=== PATIENT | female | born 1990 | race African-American/Black ===

== ENCOUNTER 2019-03-26 20:10 | Emergency (ER) | payer MEDICAID ==
[~2019-03-26] VITALS: Ht 162.6 cm; Wt 109.0 kg
[2019-03-26] MEDS ORDERED: METHYLPREDNISOLONE SOD SUCC 125 MG/2 ML VIAL IV STA (23:04)
[2019-03-26] MEDS ORDERED: SODIUM CHLORIDE 0.9% 1,000 ML IV ONE (23:04)
[2019-03-26] MEDS ORDERED: IPRATROPIUM BROMIDE (0.02%) 0.5MG/2.5ML NEB HHN STA (23:04)
[2019-03-26] MEDS: ALBUTEROL (0.083%) 2.5MG/3ML NEB HHN SCH (23:15)
[2019-03-26] MEDS ORDERED: HYDROCODONE/ACETAMINOPHEN 5/325MG TABLET PO ONE (23:15)
[2019-03-26 23:27] LABS: BASOPHILS % 0.5 % (0.0-2.0); EOSINOPHILS % 2.9 % (0.0-5.0); HEMATOCRIT. 38.6 % (36.0-48.0); HEMOGLOBIN. 12.2 g/dL (12.0-16.0); LYMPHOCYTES % 13.7 % (20.0-50.0); MEAN CORPUSCULAR HEMOGLOBIN 23.1 pg (28.0-32.0); MEAN CORPUSCULAR VOLUME 73.2 fL (81.0-99.0); MEAN PLATELET VOLUME 8.7 fl (7.4-10.4); MONOCYTES % 6.1 % (2.0-8.0); NEUTROPHILS % 76.8 % (40.0-76.0); PLATELET 329 x1000/uL (130-400); RED BLOOD CELL COUNT 5.27 mill/uL (4.2-5.4); RED CELL DISTRIBUTION WIDTH 16.1 % (11.6-14.6)
[2019-03-26 23:32] LABS: CHLORIDE 109 mEq/L (98-107)
[2019-03-27] MEDS: ALBUTEROL (0.083%) 2.5MG/3ML NEB HHN SCH ×2 (00:05→01:00)
[2019-03-27 03:08] VITALS: BP 133/78
== END 2019-03-27 03:10 | disposition home or self-care (01) ==
LOC: ER 20:10
DX: J45.901 Unspecified asthma with (acute) exacerbation (principal); F12.10 Cannabis abuse, uncomplicated; I10 Essential (primary) hypertension; Z90.89 Acquired absence of other organs; Z98.890 Other specified postprocedural states; Z87.890 Personal history of sex reassignment
CPT/HCPCS: 36415; 71045; 80053; 81025; 84484; 85025; 93005; 94640; 96374; 99285; J2930; J7030; J7611

== ENCOUNTER 2022-04-19 18:49 | Emergency (ER) | payer MEDICAID ==
[~2022-04-19] VITALS: Ht 167.6 cm; Wt 104.0 kg
[2022-04-19 20:00] VITALS: BP 132/80
[2022-04-19] MEDS ORDERED: HYDROCODONE/ACETAMINOPHEN 5/325MG TABLET PO ONE (20:00)
[2022-04-19] MEDS ORDERED: HYDR-4001 MT (20:24)
[2022-04-19] MEDS ORDERED: AMOX-494 MT (20:24)
[2022-04-19] MEDS ORDERED: ACET-2708 MT (20:24)
== END 2022-04-20 02:14 | disposition home or self-care (01) ==
LOC: ER 18:49
DX: K08.89 Other specified disorders of teeth and supporting structures (principal); J45.909 Unspecified asthma, uncomplicated; I10 Essential (primary) hypertension; Z90.49 Acquired absence of other specified parts of digestive tract; Z98.890 Other specified postprocedural states; F12.10 Cannabis abuse, uncomplicated
CPT/HCPCS: 99283

== ENCOUNTER 2022-04-27 21:58 | Emergency (ER) | payer MEDICAID ==
[~2022-04-27] VITALS: Ht 170.2 cm; Wt 122.5 kg
[~2022-04-27 21:58] MED LIST: ACET-2708 MT; AMOX-494 MT; HYDR-4001 MT
[2022-04-27] MEDS ORDERED: SODIUM CHLORIDE 0.9% 1,000 ML IV ONE ×2 (22:30)
[2022-04-27 22:54] LABS: BASOPHILS % 0.4 % (0.0-2.0); EOSINOPHILS % 0.3 % (0.0-5.0); HEMATOCRIT. 40.2 % (36.0-48.0); HEMOGLOBIN. 12.4 g/dL (12.0-16.0); MEAN CORPUSCULAR HEMOGLOBIN 23.4 pg (28.0-32.0); MEAN CORPUSCULAR VOLUME 75.9 fL (81.0-99.0); MEAN PLATELET VOLUME 8.9 fl (7.4-10.4); MONOCYTES % 3.5 % (2.0-8.0); NEUTROPHILS % 80.8 % (40.0-76.0); PLATELET 378 x1000/uL (130-400); RED BLOOD CELL COUNT 5.29 mill/uL (4.2-5.4); RED CELL DISTRIBUTION WIDTH 16.1 % (11.6-14.6)
[2022-04-27 23:02] LABS: CHLORIDE 113 mEq/L (98-107); HCG SCREEN NEGATIVE
[2022-04-27 23:10] LABS: CREATINE KINASE 85 IU/L (26-192); ETHANOL BLOOD 166 mg/dL
[2022-04-28 02:45] VITALS: BP 126/74
== END 2022-04-28 04:45 | disposition home or self-care (01) ==
LOC: ER 21:58
DX: F10.121 Alcohol abuse with intoxication delirium (principal); Y90.6 Blood alcohol level of 120-199 mg/100 ml; J45.909 Unspecified asthma, uncomplicated; I49.8 Other specified cardiac arrhythmias
CPT/HCPCS: 36415; 70450; 71045; 80053; 80307; 80320; 80329; 82550; 84484; 84703; 85025; 93005; 96360; 99285; J7030; G0480